=== PATIENT | male | born 1945 ===

== ENCOUNTER 2023-06-22 12:19 | Day surgery (SDC) | payer OTHER ==
[~2023-06-22] VITALS: Ht 175.3 cm; Wt 64.9 kg
--- NOTE | 2023-06-22 13:31 | NUR ---
06/22/23 1331 Ruth Huerta TETRACAINE PLACED IN RIGHT EYE AT 1321. PLEDGET PLACED IN RIGHT EYE AT 1322. PATIENT TOLERATED WELL.
[2023-06-22 15:05] VITALS: BP 120/84
== END 2023-06-22 15:00 | disposition home or self-care (01) ==
LOC: ORSCSDS 12:19
PROVIDERS: Ophthalmology
PROC: 08RJ3JZ Replacement of Right Lens with Synthetic Substitute, Percutaneous Approach (ICD-10-PCS; principal; 2023-06-22 14:00)
DX: H25.13 Age-related nuclear cataract, bilateral (principal); H35.372 Puckering of macula, left eye; F17.210 Nicotine dependence, cigarettes, uncomplicated; Z79.899 Other long term (current) drug therapy
CPT/HCPCS: J2250; J3010; J3301; J7040; V2632

== ENCOUNTER 2023-07-04 14:29 | Day surgery (SDC) | payer OTHER ==
[~2023-07-04] VITALS: Ht 175.3 cm; Wt 64.0 kg
--- NOTE | 2023-07-04 14:48 | NUR ---
07/04/23 1448 Doris Inman TETRACAINE ADMINISTERED TO THE L EYE AT 1446, PLEDGET PLACED AT 1446 BY [email or web address]
[2023-07-04 15:39] VITALS: BP 126/77
--- NOTE | 2023-07-04 15:56 | NUR ---
07/04/23 1552 Doris Inman 1546 IV REMOVED CANNULA INTACT, PT ALMAS WELL DENIES PAIN AND NAUSEA
== END 2023-07-04 15:55 | disposition home or self-care (01) ==
LOC: ORSCSDS 14:29
PROVIDERS: Ophthalmology
PROC: 08RK3JZ Replacement of Left Lens with Synthetic Substitute, Percutaneous Approach (ICD-10-PCS; principal; 2023-07-04 16:00)
DX: H25.12 Age-related nuclear cataract, left eye (principal); Z96.1 Presence of intraocular lens; F17.200 Nicotine dependence, unspecified, uncomplicated
CPT/HCPCS: J2250; J3010; J3301; J7040; V2632